=== PATIENT | male | born 1995 | race African-American/Black ===

== ENCOUNTER 2021-02-24 19:23 | Emergency (ER) | payer OTHER ==
[~2021-02-24] VITALS: Ht 170.2 cm; Wt 54.4 kg
--- NOTE | 2021-02-24 19:25 | NUR ---
PT AAOX4. AMBULATORY WITH STEADY GAIT. LIONEL FROM THE STREETS, C/O SI WITH NO SPECIFIC PLAN. [place], HI STATING HE WANTS TO FIGHT SOMEONE. PT PLACED IN GOWN, ON MONITOR, AND PULSE OX. VSS. SITTER AT BEDSIED. BELONINGS PLACED IN LOCKER.
[2021-02-24] MEDS ORDERED: LORAZEPAM INJ 2 MG/ML VIAL ONE (19:47)
[2021-02-24] MEDS ORDERED: diphenhydrAMINE HCL 50 MG/ML VIAL ONE (19:47)
[2021-02-24] MEDS ORDERED: OLANZAPINE 10 MG VIAL IM ONE ×2 (19:47→20:00)
[2021-02-24] MEDS ORDERED: diphenhydrAMINE HCL 50 MG/ML VIAL IM ONE (20:00)
[2021-02-24] MEDS ORDERED: LORAZEPAM INJ 2 MG/ML VIAL IM ONE (20:00)
[2021-02-24 20:46] LABS: BASOPHILS # (AUTO) 0.1 /CMM (0.0-0.2); BASOPHILS % (AUTO) 1.2 % (0.0-2.0); EOSINOPHILS % (AUTO) 3.2 % (0.0-6.0); HEMATOCRIT 41 % (39-51); HEMOGLOBIN 13.8 g/dL (13.5-17.5); LYMPHOCYTES # (AUTO) 2.5 /CMM (0.8-4.8); LYMPHOCYTES % (AUTO) 30.9 % (20.0-44.0); MEAN CORPUSCULAR HGB CONC 34 g/dl (31.0-36.0); MEAN CORPUSCULAR VOLUME 90 fL (80-96); MONOCYTES # (AUTO) 0.5 /CMM (0.1-1.30); MONOCYTES % (AUTO) 6.2 % (2.0-12.0); NEUTROPHILS # (AUTO) 4.8 /CMM (1.8-8.9); NEUTROPHILS % (AUTO) 58.5 % (43.0-81.0); PLATELET COUNT (AUTO) 283 /CMM (150-450); RED BLOOD CELL COUNT(AUTO) 4.54 MIL/uL (4.5-6.0); WHITE BLOOD COUNT (AUTO) 8.2 K/uL (4.3-11.0)
[2021-02-24 20:57] LABS: CALCIUM, SERUM 8.9 mg/dL (8.5-10.1); CARBON DIOXIDE 26 mmol/L (21-32); CHLORIDE 106 mmol/L (98-107); CREATININE 0.8 mg/dL (0.6-1.3); GLUCOSE 82 mg/dL (74-106); POTASSIUM 3.6 mmol/L (3.5-5.1); SODIUM SERUM 140 mmol/L (136-145); UREA NITROGEN, BLOOD 13 mg/dL (7-18)
[2021-02-24 21:03] LABS: ACETAMINOPHEN < 2 ug/ml (10-30); ALANINE AMINOTRANSFERASE 30 U/L (12-78); ALBUMIN 3.6 g/dL (3.4-5.0); ALCOHOL, BLOOD < 3 mg/dL (0-0); ALKALINE PHOSPHATASE 109 U/L (46-116); ASPARTATE AMINOTRANSFERASE 30 U/L (15-37); BILIRUBIN,DIRECT 0.1 mg/dL (0.0-0.2); BILIRUBIN,TOTAL 0.5 mg/dL (0.2-1.0); TOTAL PROTEIN, SERUM 6.6 g/dL (6.4-8.2)
[2021-02-24 21:49] LABS: BILIRUBIN,URINE Negative (NEGATIVE); COLOR,URINE YELLOW (YELLOW); LEUKOCYTE ESTERASE ,URINE Negative (NEGATIVE); NITRITE, URINE Negative (NEGATIVE); PH,URINE 7.5 (5.0-8.0); PROTEIN,URINE 30 mg/dl (NEGATIVE); UGLUCOSE Negative (NEGATIVE); UROBILINOGEN,URINE 0.2 EU/dL (0.2)
--- NOTE | 2021-02-24 21:52 | NUR ---
CALL FROM LAB. RAPID COVID NEGATIVE.
[2021-02-24 22:12] LABS: BACTERIA,URINE Rare /HPF (None Seen); RBC,URINE NONE SEEN /HPF (0-2); SQUAMOUS EPITHELIAL CELL,UR Few /HPF (None Seen); WBC,URINE NONE SEEN /HPF (0-3)
--- NOTE | 2021-02-25 02:32 | NUR ---
CLINICAL AND FACESHEET FAXED TO [facility] INTAKE FOR VOLUNTARY PSYCH ADMISSION.
--- NOTE | 2021-02-25 03:11 | NUR ---
PT ASLEEP. VSS
--- NOTE | 2021-02-25 05:32 | NUR ---
[facility] Nurse paged per Dr Gross.
--- NOTE | 2021-02-25 05:35 | NUR ---
PT AWAKE IN BED, PROVIDED WITH WATER.
--- NOTE | 2021-02-25 07:10 | NUR ---
TRANSFER INFORMATION: PT ACCEPTED AT [facility] ACCEPTING MD KEENAN PHONE # FOR REPORT
--- NOTE | 2021-02-25 07:19 | NUR ---
[facility] ETA [id number].
[2021-02-25 07:51] VITALS: BP 110/66
--- NOTE | 2021-02-25 07:52 | NUR ---
REPORT GIVEN TO JUANPABLO ELLIS OF [facility].
--- NOTE | 2021-02-25 08:13 | NUR ---
REPORT GIVEN TO EMS FOR PT TRANSFER TO [facility].
== END 2021-02-25 08:14 ==
LOC: ER 19:26
DX: R45.851 Suicidal ideations (principal); F20.9 Schizophrenia, unspecified; Z91.14 Patient's other noncompliance with medication regimen; R45.850 Homicidal ideations; F19.10 Other psychoactive substance abuse, uncomplicated; Z88.8 Allergy status to other drugs, medicaments and biological substances; Z20.822 Contact with and (suspected) exposure to COVID-19
CPT/HCPCS: 36415; 80048; 80076; 80299; 80307; 80320; 81001; 85025; 87426; 96372 ×2; 99285; C9803; J1200; J2060; J3490; G0480